=== PATIENT | male | born 1985 | race Caucasian/White ===

== ENCOUNTER 2018-05-09 23:33 | Emergency (ER) | payer SELFPAY ==
--- NOTE | 2018-05-09 23:36 | ED Physician Documentation ---
General Adult - HISTORIAN Historian: patient - HPI Stated Complaint: head injury Chief Complaint: General Adult Onset: minutes Timing: still present Severity: moderate Further Comments: yes (Pt is a 32 yo prisoner who sustained injury to his head after falling and presents with an abrasion in the center of his forehead. He has normal speech, and states that he cannot recall his name or what happened. Pt also states that he has no allergies and takes no medications. He states that he is a smoker and had been a drug abuser. He has a headache and nausea, he says, and feels like he might pass out. Pt denies neck pain. 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 reports.) - ROS CONST: weakness, other (lightheadedness) CVS/RESP: none GI/: nausea MS/SKIN/LYMPH: other (forehead abrasion) NEURO/PSYCH: headache, dizziness - PAST HX Past History: other (drug abuse) Surgeries/Procedures: cholecystectomy Allergies/Adverse Reactions: Allergies Allergy/AdvReac Type Severity Reaction Status Date / Time No Known Allergies Allergy Verified 05/09/18 23:50 Home Medications: Ambulatory Orders Medication Instructions Recorded NK [NK] 05/09/18 - SOCIAL HX Smoking History: cigarettes Drug Use: other (drug abuse NOS) - FAMILY HX Family History: No - VITAL SIGNS Vital Signs: Vital Signs Temp Pulse Resp BP Pulse Ox 142/72 05/03/13 18:07 - REVIEWED ASSESSMENTS Nursing Assessment Reviewed: Yes Vitals Reviewed: Yes Progress - Progress Progress: CT head w/o contrast: No acute intracranial process. Paranasal sinus disease. NS 1 L IVF Zofran 4 mg po x 1 Toradol 30 mg IV head trauma w possible amnesia vs malingering Follow up with facility physician in am as sx warrant. General Adult Physical Exam - PHYSICAL EXAM GENERAL APPEARANCE: mild distress EENT: eye inspection normal, pharynx normal, other (poor dentition; small abrasion inside lower lip) NECK: normal inspection, supple RESPIRATORY: no resp distress, chest non-tender, breath sounds normal CVS: reg rate & rhythm, heart sounds normal ABDOMEN: soft, no organomegaly, normal bowel sounds BACK: normal inspection, no CVA tenderness SKIN: other (forehead abrasion) EXTREMITIES: non-tender, normal range of motion, no edema NEURO: CN's nml as tested, motor nml, sensation nml, other (pt states that he can't remember his name and does not answer orientation questions.) Discharge Clincal Impression: head trauma, ? amnesia vs malingering Referrals: Primary Doctor,No [Primary Care Provider] - 2 Days Condition: Stable Disposition: 01 HOME, SELF-CARE Decision to Admit: NO Decision Time: 00:46
[2018-05-10] MEDS: ONDANSETRON HCL 4 MG TAB.RAPDIS PO ONE
[2018-05-10] MEDS: 0.9 % SODIUM CHLORIDE 1,000 ML IV ONE (00:05)
[2018-05-10] MEDS: KETOROLAC TROMETHAMINE 30 MG/1ML VIAL IVP ONE (00:12)
[2018-05-10 00:20] LABS: BASOPHILS % 0.3 (0.0-1.5); EOSINOPHILS % 0.8 % (0.0-6.8); MEAN CORPUSCULAR HEMOGLOBIN 28.6 pg (28.0-34.0); MONOCYTES % 2.7 % (0.0-11.0); NEUTROPHILS # 7.2 # k/uL (1.4-7.7)
[2018-05-10 00:33] LABS: eGFR (African) > 60; eGFR (Non-African) > 60
[2018-05-10 01:42] VITALS: BP 120/58
--- NOTE | 2018-05-10 05:49 | Diagnostic Imaging Report ---
MISSY YOUNG [facility] [address] [place], [place]. [address] Report Submission Date: May 10, 2018 12:04:55 AM CDT Patient Study Name: DWAYNE CALDWELL Date: May 09, 2018 11:47:31 PM CDT Modality Type: CT\SR Gender: M Description: CT BRAIN W/O CONTRAST : 89 Institution: [facility] Physician: MISSY YOUNG CT brain noncontrast Date of study: May 09, 2018 CLINICAL HISTORY: FALL, HEAD TRAUMA, PATIENT DOESNT REMEMBER FALLING, ABRASION ON FOREHEAD TECHNIQUE: 5 mm contiguous axial of the brain, noncontrast. Sagittal and coronal multiplanar reconstructions. FINDINGS: There is no evidence of intracranial mass effect, hemorrhage, or acute infarct. The lateral ventricles are symmetrical and the 4th ventricle is midline without shift. No acute brain parenchymal changes or extra-axial fluid collections are identified. The posterior fossa contents are within normal limits. The calvarium is intact. The visualized mastoid air cells are clear. Left maxillary sinus is opacified. The frontal sinuses are hypoplastic. IMPRESSION: No acute intracranial process. Paranasal sinus disease. Electronically signed on May 10, 2018 12:04:55 AM CDT by: Karl MOSER
== END 2018-05-10 01:25 | disposition home or self-care (01) ==
LOC: ED 23:33
DX: S09.90XA Unspecified injury of head, initial encounter (principal); W19.XXXA Unspecified fall, initial encounter; Y92.148 Other place in prison as the place of occurrence of the external cause; Y93.9 Activity, unspecified; Y99.9 Unspecified external cause status
CPT/HCPCS: 70450; 80053; 85025; A9270; J1885; J7030; 96365; 96375; 99284; S1016